=== PATIENT | female | born 1960 | race Caucasian/White ===

== ENCOUNTER 2017-10-04 16:27 | Emergency (ER) | payer BC ==
[~2017-10-04] VITALS: Ht 170.2 cm; Wt 70.5 kg
[2017-10-04] MEDS ORDERED: TORADOL PO (17:28)
[2017-10-04 17:40] VITALS: BP 156/78
== END 2017-10-04 17:40 | disposition home or self-care (01) | DRG 605 ==
LOC: ED 16:27
DX: S30.0XXA Contusion of lower back and pelvis, initial encounter (principal); S70.02XA Contusion of left hip, initial encounter; S90.02XA Contusion of left ankle, initial encounter; S80.01XA Contusion of right knee, initial encounter; W19.XXXA Unspecified fall, initial encounter; Y92.512 Supermarket, store or market as the place of occurrence of the external cause